=== PATIENT | female | born 1985 | race Caucasian/White ===

== ENCOUNTER 2018-07-14 18:53 | Emergency (ER) | payer SELFPAY ==
--- NOTE | 2018-07-14 18:57 | ER Report ---
History and Physical Time Seen By MD: 18:57 HPI/ROS CHIEF COMPLAINT: Vaginal bleeding HISTORY OF PRESENT ILLNESS: Female presents with vaginal bleeding since this morning. She states she had a test at home that was positive several weeks ago. She thinks she is approximately 6 weeks . She is a G5, P4. Patient denies dysuria. Patient denies nausea or vomiting. REVIEW OF SYSTEMS: Respiratory: No cough, no dyspnea. Cardiovascular: No chest pain, no palpitations. Gastrointestinal: No vomiting, no abdominal pain. Musculoskeletal: No back pain. Allergies: Coded Allergies: No Known Drug Allergies (Unverified , 07/14/18) Home Meds No Active Prescriptions or Reported Meds Reviewed Nurses Notes: Yes Old Medical Records Reviewed: Yes Constitutional Vital Sign - Last 24 Hours 07/14/18 07/14/18 07/14/18 07/14/18 18:59 19:07 19:08 19:23 Temp 98.9 Pulse 98 87 98 Resp 20 19 B/P (MAP) 126/89 112/78 (89) Pulse Ox 99 97 97 O2 Delivery Room Air 07/14/18 07/14/18 07/14/18 07/14/18 19:30 19:35 20:00 20:05 Pulse 85 82 Resp 15 16 B/P (MAP) 118/81 (93) 114/87 (96) Pulse Ox 88 97 07/14/18 07/14/18 07/14/18 20:20 20:30 20:40 Pulse 84 ??? Resp 16 18 B/P (MAP) 102/61 (75) Pulse Ox 97 Intake and Output 07/14/18 07/14/18 07/15/18 14:58 22:58 06:58 Intake Total 1000 ml Balance 1000 ml Physical Exam General Appearance: The patient is alert, has no immediate need for airway protection and no current signs of toxicity. Vital signs stable, afebrile, pulse ox normal Eyes: Pupils equal and round no injection. Respiratory: Chest is non tender, lungs are clear to auscultation. Cardiac: regular rate and rhythm Gastrointestinal: Abdomen is soft and non tender, no masses, bowel sounds normal. Musculoskeletal: Neck: Neck is supple and non tender. Extremities have full range of motion and are non tender. Skin: No rashes or lesions. DIFFERENTIAL DIAGNOSIS: After history and physical exam differential diagnosis was considered for vaginal bleeding including but not limited to ectopic , menses, miscarriage, and dysfunctional uterine bleeding. Medical Decision Making Data Points Result Diagram: 07/14/18190207/14/181902 Laboratory Hematology Test 07/14/18 19:03 Red Blood Count 4.95 M/uL (4.17-5.56) Mean Corpuscular Volume 88.7 fL (80.0-96.0) Mean Corpuscular Hemoglobin 30.3 pg (26.0-33.0) Mean Corpuscular Hemoglobin Concent 34.2 g/dL (32.0-36.0) Red Cell Distribution Width 13.8 % (11.5-14.5) Mean Platelet Volume 11.1 fL (7.2-11.1) Neutrophils (%) (Auto) 68.5 % (39.4-72.5) Lymphocytes (%) (Auto) 23.5 % (17.6-49.6) Monocytes (%) (Auto) 6.4 % (4.1-12.4) Eosinophils (%) (Auto) 0.6 % (0.4-6.7) Basophils (%) (Auto) 1.0 % (0.3-1.4) Nucleated RBC Relative Count (auto) 0.2 /100WBC Neutrophils # (Auto) 6.2 K/uL (2.0-7.4) Lymphocytes # (Auto) 2.1 K/uL (1.3-3.6) Monocytes # (Auto) 0.6 K/uL (0.3-1.0) Eosinophils # (Auto) 0.1 K/uL (0.0-0.5) Basophils # (Auto) 0.1 K/uL (0.0-0.1) Nucleated RBC Absolute Count (auto) 0.01 K/uL Prothrombin Time 13.1 seconds (12.0-14.4) Prothromb Time International Ratio 0.99 Activated Partial Thromboplast Time 28 seconds (23-35) Sodium Level 139 mmol/L (137-145) Potassium Level 3.6 mmol/L (3.5-5.0) Chloride Level 106 mmol/L (98-107) Carbon Dioxide Level 25 mmol/L (22-31) Blood Urea Nitrogen 17 mg/dl (7-18) Creatinine 0.80 mg/dl (0.52-1.04) Glomerular Filtration Rate Calc > 60.0 Random Glucose 92 mg/dl (75-110) Calcium Level 9.4 mg/dl (8.4-10.2) Total Bilirubin 0.9 mg/dl (0.2-1.3) Aspartate Amino Transf (AST/SGOT) 38 U/L (0-35) Alanine Aminotransferase (ALT/SGPT) 46 U/L (0-56) Alkaline Phosphatase 130 U/L (0-126) Total Protein 8.1 g/dl (6.3-8.2) Albumin 4.3 g/dl (3.5-5.0) Human Chorionic Gonadotropin, Quant < 2 mIU/ml Chemistry Test 07/14/18 19:03 White Blood Count 9.1 k/uL (4.5-11.0) Red Blood Count 4.95 M/uL (4.17-5.56) Hemoglobin 15.0 g/dL (12.0-16.0) Hematocrit 43.9 % (34.0-47.0) Mean Corpuscular Volume 88.7 fL (80.0-96.0) Mean Corpuscular Hemoglobin 30.3 pg (26.0-33.0) Mean Corpuscular Hemoglobin Concent 34.2 g/dL (32.0-36.0) Red Cell Distribution Width 13.8 % (11.5-14.5) Platelet Count 204 K/uL (150-450) Mean Platelet Volume 11.1 fL (7.2-11.1) Neutrophils (%) (Auto) 68.5 % (39.4-72.5) Lymphocytes (%) (Auto) 23.5 % (17.6-49.6) Monocytes (%) (Auto) 6.4 % (4.1-12.4) Eosinophils (%) (Auto) 0.6 % (0.4-6.7) Basophils (%) (Auto) 1.0 % (0.3-1.4) Nucleated RBC Relative Count (auto) 0.2 /100WBC Neutrophils # (Auto) 6.2 K/uL (2.0-7.4) Lymphocytes # (Auto) 2.1 K/uL (1.3-3.6) Monocytes # (Auto) 0.6 K/uL (0.3-1.0) Eosinophils # (Auto) 0.1 K/uL (0.0-0.5) Basophils # (Auto) 0.1 K/uL (0.0-0.1) Nucleated RBC Absolute Count (auto) 0.01 K/uL Prothrombin Time 13.1 seconds (12.0-14.4) Prothromb Time International Ratio 0.99 Activated Partial Thromboplast Time 28 seconds (23-35) Glomerular Filtration Rate Calc > 60.0 Calcium Level 9.4 mg/dl (8.4-10.2) Total Bilirubin 0.9 mg/dl (0.2-1.3) Aspartate Amino Transf (AST/SGOT) 38 U/L (0-35) Alanine Aminotransferase (ALT/SGPT) 46 U/L (0-56) Alkaline Phosphatase 130 U/L (0-126) Total Protein 8.1 g/dl (6.3-8.2) Albumin 4.3 g/dl (3.5-5.0) Human Chorionic Gonadotropin, Quant < 2 mIU/ml Coagulation Test 07/14/18 19:03 Prothrombin Time 13.1 seconds Prothromb Time International Ratio 0.99 Activated Partial Thromboplast Time 28 seconds EKG/Imaging Imaging Results: Ultrasound of the transvaginal ultrasound was obtained. The results of the study are OB Ultrasound < 14 weeks Additional Pertinent history: Vaginal bleeding. Early . COMPARISON STUDIES: None available FINDINGS: Gestational sac: Not visualized Yolk sac: Not visualized pole: Not visualized Uterus: Ureter shows no focal abnormality. Endometrial stripe is normal without fluid or focal abnormality. Maternal ovaries: Both ovaries are normal with normal blood flow. Adnexa: No adnexal mass lesion or focal abnormality. Free pelvic fluid: none IMPRESSION: 1. No indication of intrauterine or extrauterine . Suggest follow-up clinically and laboratory values to assess for early . Follow-up imaging as indicated. 2. No acute abnormality. The study was read by the radiologist. I viewed the images myself on the PACS system. ED Course/Re-evaluation Clinical Indication for ER IV: Hydration, IV Access ED Course Patient was admitted to an examination room. H&P was done. The differential diagnoses was considered. On clinical examination. Patient has stable vital signs. She is on appear orthostatic. Her H&H is stable. Her test quantitative returns at 0. A transvaginal ultrasound is noted to be unremarkable intrauterine or extrauterine . I suspect. Patient's test was a false positive. Patient advised to follow-up with [facility]. She is discharged home with 2 Lortab for temporary pain relief tonight. Decision to Disposition Date: Jul 14, 2018 Decision to Disposition Time: 20:19 Depart Departure Latest Vital Signs Vital Signs Date Time Temp Pulse Resp B/P (MAP) Pulse Ox O2 Delivery O2 Flow Rate FiO2 07/14/18 20:40 ??? 18 07/14/18 20:30 102/61 (75) 07/14/18 20:20 97 07/14/18 18:59 98.9 Room Air Impression: Primary Impression: Vaginal bleeding Condition: Improved Disposition: HOME OR SELF-CARE Referrals: HARRIS CLEMENT KIM N MD New Scripts No Active Prescriptions or Reported Meds Patient Instructions: Dysmenorrhea (ED) Additional Instructions: Take ibuprofen 200 mg 3 tablets 3 times a day with food Apply heating pad to your lower abdomen Follow-up with [facility]CHIT[facility]URE PROFESSOR in 3-5 if you have continued heavy bleeding for further evaluation ADE VAZQUEZ DO Jul 14, 2018 18:57
[2018-07-14] MEDS ORDERED: NS(*) 0.9% 1000 ML BAG 1,000 ML IV ONE (19:00)
[2018-07-14 19:21] LABS: INR 0.99
[2018-07-14 19:24] LABS: PLATELET COUNT, AUTOMATED 204 K/uL (150-450)
[2018-07-14] MEDS ORDERED: ACET/HYDROC 5/325MG TH ER ONLY 2 TAB/BOTTLE PO ONE (20:20)
[2018-07-14] MEDS ORDERED: KETOROLAC 30 MG/ML VIAL IVP ONE (20:20)
[2018-07-14 20:30] VITALS: BP 102/61
--- NOTE | 2018-07-14 20:44 | RADIOLOGY IMAGING REPORT ---
FACILITY: [facility] PATIENT NAME: Jasmin Carolina : 1985 MR: [id number] V: [id number] EXAM DATE: ORDERING PHYSICIAN: ADE VAZQUEZ TECHNOLOGIST: Location: [facility] Patient: Jasmin Carolina : 1985 Visit/Account:[id number] Date of Sevice: 07/14/2018 OB Ultrasound < 14 weeks Additional Pertinent history: Vaginal bleeding. Early . COMPARISON STUDIES: None available FINDINGS: Gestational sac: Not visualized Yolk sac: Not visualized pole: Not visualized Uterus: Ureter shows no focal abnormality. Endometrial stripe is normal without fluid or focal abnorm ality. Maternal ovaries: Both ovaries are normal with normal blood flow. Adnexa: No adnexal mass lesion or focal abnormality. Free pelvic fluid: none IMPRESSION: 1. No indication of intrauterine or extrauterine . Suggest follow-up clinically and laborato ry values to assess for early . Follow-up imaging as indicated. 2. No acute abnormality. Report Dictated By: Farhad Rodriguez at 07/14/2018 8:38 PM Report E-Signed By: Farhad Rodriguez at 07/14/2018 8:40 PM [id number]
== END 2018-07-14 20:42 | disposition home or self-care (01) ==
LOC: ER 19:23
DX: N93.9 Abnormal uterine and vaginal bleeding, unspecified (principal)
CPT/HCPCS: 84702; 85025; 85610; 85730; 86850; 86900; 86901; 96361; 96374; 99284; J1885; J7030; 76817; 82040; 82247; 82310; 82374; 82435; 82565; 82947; 84075; 84132; 84155; 84295; 84450; 84460; 84520

== ENCOUNTER 2018-11-05 19:30 | Emergency (ER) | payer SELFPAY ==
[2018-11-05 19:36] VITALS: BP 129/80
--- NOTE | 2018-11-05 19:48 | ER Report ---
History and Physical Time Seen By MD: 19:40 Hx. of Stated Complaint: PT REPORTS CHEST PAIN AND L KNEE PAIN FROM FALL YESTERDAY HPI/ROS CHIEF COMPLAINT: Fall, knee pain HISTORY OF PRESENT ILLNESS: 32-year-old female was working on a lift yesterday. She states that the lift broke and she fell. However, she was holding from the list in the air before falling so ultimately fell approximately 7 feet. She states that she landed on her feet but her left knee locked. She fell forward hitting her chest but did not strike her head or lose consciousness. She was abl e to ambulate at the scene. She complains of left knee pain that has been ongoing and very mild chest discomfort which she has not concerned. She states that knee is painful when she bends it though it has not been worsening since yesterday. She has not tried ice, or medications for it. She states that friends told her to come because she was still having pain with it. REVIEW OF SYSTEMS: Constitutional: no fever Eyes: no blurred vision ENT: no facial injury Cardiovascular: no cyanosis Respiratory: no shortness of breath Gastrointestinal: no vomiting Genitourinary: no injury Musculoskeletal: No back pain. Skin: No rashes. Neurological: No headache. Remainder of the 14 system rev: Yes Allergies: Coded Allergies: No Known Drug Allergies (Unverified , 11/05/18) Home Meds No Active Prescriptions or Reported Meds Constitutional Vital Sign - Last 24 Hours 11/05/18 19:36 Temp 98.2 Pulse 87 Resp 16 B/P (MAP) 129/80 Pulse Ox 94 O2 Delivery Room Air Physical Exam General Appearance: The patient is alert, has no immediate need for airway protection and no signs of toxicity. Eyes: Pupils equal and round no pallor or injection. ENT, Mouth: Mucous membranes are moist. Respiratory: no respiratory distress Cardiovascular: Regular rate and rhythm. Neurological: alert, oriented, moves all ext Skin: Warm and dry, no rashes. Musculoskeletal: Extremities are nontender, nonswollen and have full range of motion with exception of left knee. Pt is able to actively flex with ROM from 0-100 deg. ne gative anterior drawer, negative posterior drawer, negative Jocy's, negative Atul's, no patellar tenderness. Patella and quadriceps tendons are intact. Patient had tenderness over quadriceps tendon as well as medially and laterally. She has tenderness over distal vastus medialis without tendon defect. There is no popliteal fullness. No calf or tibial tenderness no tenderness at head of fibula. Calcaneus without tenderness. No ankle swelling or edema. DIFFERENTIAL DIAGNOSIS: After history and physical exam differential diagnosis was considered for knee fracture, dislocation, sprain, strain, calcaneus fx, spine fx, or other emergent etiology. Medical Decision Making ED Course/Re-evaluation ED Course 32-year-old female presents one day after fall from approximately 6-7 feet. She landed on her feet, but states that left knee locked and has been painful since. The patient was able to ambulate on it at the scene as well as now. Patient has had ongoing pain and comes in today because as she states other people told her to come in. On exam she is negative for fracture by [place] knee rules. Findings consistent with sprain without other significant injuries. Patient refuses medications in the emergency department we'll Luis wrap and DC with strict return precautions. Decision to Disposition Date: Nov 05, 2018 Decision to Disposition Time: 19:46 Depart Departure Latest Vital Signs Vital Signs Date Time Temp Pulse Resp B/P (MAP) Pulse Ox O2 Delivery O2 Flow Rate FiO2 11/05/18 19:36 98.2 87 16 129/80 94 Room Air Impression: Primary Impression: Knee sprain Condition: Improved Disposition: HOME OR SELF-CARE New Scripts No Active Prescriptions or Reported Meds Patient Instructions: Knee Sprain (ED), Knee Sprain Exercises (GEN) Additional Instructions: As we discussed, you do not have signs of a break or fracture; I recommend ice 20 minutes at a time, exercises as I have given, ambulation as tolerated and ibuprofen 600mg every 8 hours if needed. Please return for worsening pain, inability to walk, or any concerns. Problem Qualifiers Primary Impression: Knee sprain Encounter type: initial encounter Involved ligament of knee: other ligament Laterality: left Qualified Codes: S83.8X2A - Sprain of other specified parts of left knee, initial encounter ANGELI GIRARD MD Nov 05, 2018 19:48
== END 2018-11-05 19:53 | disposition home or self-care (01) ==
LOC: ER 19:41
DX: S83.8X2A Sprain of other specified parts of left knee, initial encounter (principal); W17.89XA Other fall from one level to another, initial encounter
CPT/HCPCS: 99282

== ENCOUNTER 2019-01-27 14:08 | Emergency (ER) | payer SELFPAY ==
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
[2019-01-27 15:00] VITALS: BP 107/54
--- NOTE | 2019-01-27 15:07 | RADIOLOGY IMAGING REPORT ---
FACILITY: [facility] PATIENT NAME: Jasmin Carolina : 1985 MR: [id number] V: [id number] EXAM DATE: ORDERING PHYSICIAN: DAVID OLSEN TECHNOLOGIST: Location: [facility] Patient: Jasmin Carolina : 1985 Visit/Account:[id number] Date of Sevice: 01/27/2019 HAND COMPLETE RIGHT History: Trauma to right hand. Comparison study: None. Findings: There is no fracture or dislocation involving the right hand. There are no findings of ar thropathy. IMPRESSION: Normal images of the right hand. No findings of fracture involving the fourth or fifth m etacarpal. Report Dictated By: Hao Billings MD at 01/27/2019 3:01 PM Report E-Signed By: Hao Billings MD at 01/27/2019 3:02 PM [id number]
== END 2019-01-27 15:19 | disposition home or self-care (01) ==
LOC: ER 14:19
DX: S69.91XA Unspecified injury of right wrist, hand and finger(s), initial encounter (principal); Y04.0XXA Assault by unarmed brawl or fight, initial encounter
CPT/HCPCS: 99283

== ENCOUNTER → 2019-02-22 | Outpatient (CLI) | payer SELFPAY ==
[~2019-02-22] MED LIST: PREN-127 PO
[2019-02-22 10:41] LABS: PLATELET COUNT, AUTOMATED 188 K/uL (150-450)
== END ==
LOC: LAB 09:20
PROVIDERS: ATTEND Obstetrics & Gynecology
DX: Z34.01 Encounter for supervision of normal first pregnancy, first trimester (principal); Z87.898 Personal history of other specified conditions
CPT/HCPCS: 36415; 85025; 86592; 86703; 86762; 86850; 86900; 86901; 87340

== ENCOUNTER → 2019-03-04 | Outpatient (CLI) | payer SELFPAY | LOC: LAB 10:06 | PROVIDERS: ATTEND Obstetrics & Gynecology | DX: Z34.01 Encounter for supervision of normal first pregnancy, first trimester (principal); Z87.898 Personal history of other specified conditions | CPT/HCPCS: 81001; 87088 ==